=== PATIENT | male | born 1955 | race Caucasian/White ===

== ENCOUNTER 2016-08-06 17:17 | Inpatient (IN) ==
[2016-08-06] MEDS ORDERED: OCTREOTIDE 100 MCG/ML SYRINGE IV STA (17:58)
[2016-08-06] MEDS ORDERED: ONDANSETRON 4 MG/2 ML VIAL IV STA (17:58)
[2016-08-06] MEDS ORDERED: PANTOPRAZOLE INJ 80 MG in SODIUM CHLORIDE 0.9% 100 ML IV STA (17:58)
[2016-08-06] MEDS ORDERED: SODIUM CHLORIDE 0.9% 1,000 ML IV STA (18:00)
[2016-08-06] MEDS ORDERED: ONDANSETRON 4 MG/2 ML VIAL ONE (18:26)
[2016-08-06] MEDS ORDERED: PANTOPRAZOLE 40 MG VIAL IV ONE (18:26)
[2016-08-06] MEDS ORDERED: OCTREOTIDE 100 MCG/ML SYRINGE ONE (18:27)
[2016-08-06 18:32] LABS: Basophils % 0.1 % (0.0-0.8); Hematocrit 29.4 VOL% (42.0-52.0); Hemoglobin 9.6 GM/DL (14.0-18.0); Immature Granulocytes % 1.2 %; Immature Granulocytes Absolute 0.11 #; Lymphocytes # 0.8 10*3/uL (1.4-4.0); Lymphocytes % 9.1 % (21.2-54.2); Mean Corpuscular HGB Conc 32.7 GM/DL (32-36); Mean Corpuscular Hemoglobin 32 PG (27-34); Mean Platelet Volume 10.3 FL (9.6-12.0); Monocytes # 0.5 10*3/uL (0.11-0.8); Monocytes % 4.9 % (1.7-12.7); Neutrophils # 7.8 10*3/uL (1.4-7.4); Neutrophils % 84.7 % (38.7-73.9); Red Cell Distribution Width 15.4 % (9.3-17.3); White Blood Count 9.2 T/CUMM (4-12)
[2016-08-06 18:33] LABS: Platelet Count 96 T/CUMM (130-400)
[2016-08-06 18:42] LABS: INR 1.4; PT Patient Result 15.1 SECS; Partial Thromboplastin Time 28.1 SECS (0-40)
--- NOTE | 2016-08-06 18:50 | XRay Report ---
Portable chest Date: 08/06/2016 Clinical history: Shortness of breath Comparison: None Technique: Portable AP sitting chest Findings: The heart is borderline in size with prior median sternotomy. Chronic scarring with minimal relative elevation right hemidiaphragm. Minimal atelectasis/edema at the lung bases. Degenerative changes are noted. Impression: Status post median sternotomy with chronic scarring. Relative elevation of the right hemidiaphragm. Minimal atelectasis/edema at the lung bases. PROCEDURE INTERPRETED AT [facility] DEPARTMENT OF RADIOLOGY Final Report Signed by: Dr. Ember Jaramillo
[2016-08-06 19:16] LABS: Albumin 2.8 G/DL (3.4-5.0); Bilirubin,Total 3.2 MG/DL (0.2-1.0); Calcium 8.7 MG/DL (8.5-10.1); Magnesium 1.7 MG/DL (1.8-2.4); Osmolality,Calculated 296.1 MOS/KG (273-304); Potassium 3.7 MMOL/L (3.5-5.1); Total Protein 6.7 G/DL (6.4-8.3)
--- NOTE | 2016-08-06 19:31 | Hospitalist History & Physical ---
Assessment and Plan - Time spent with patient Time spent with patient: Greater than 30 minutes (1) Hematemesis Status: Acute Assessment and plan: History of esophageal varices likely source. Currently on octreotide in the ER. Admit to ICU, obtain CBCs every 4 hours. Start ceftriaxone for prophylactic antibiotics. Continue fluids and PPI. Keep n.p.o. Consult GI. Current Visit: Yes (2) Hepatic cirrhosis due to chronic hepatitis C infection Status: Acute Assessment and plan: Will consult GI for any further recommendations. Obtain serial labs. Current Visit: Yes (3) CAD (coronary artery disease) Status: Acute Assessment and plan: Hold aspirin and follow. Keep adequate hemoglobin levels. Current Visit: Yes (4) Hypothyroidism Status: Acute Assessment and plan: Holding medication. Current Visit: Yes (5) HTN (hypertension) Status: Acute Assessment and plan: We will continue to monitor. Holding medications. Current Visit: Yes History of Present Illness Chief complaint: Vomiting blood for 2 days History of present illness: Mr. Thorne is a 60 year old male with a medical history of coronary artery disease with CABG, hep C cirrhosis, alcohol abuse, esophageal varices with prior banding presents with hematemesis for 2 days. Patient states the day prior to admission he began vomiting coffee-ground emesis. He was unable to sleep due to persistent nausea and vomiting progressed until the day of admission where he developed melena and and continued vomiting dark blood. He presents from outside hospital and was transferred to [facility] for evaluation by specialist. While in the ER he vomited 200 cc of bright red blood. He currently has no complaints of chest pain or shortness of breath. Denies any fever lightheadedness. Denies any abdominal pain. He did experience upper abdominal pain yesterday. He has continued nausea. Denies any alcohol or drug use. States he started Harvoni for hep C treatment 3 weeks ago and is concerned that might be causing this. Home Medications Medication Instructions Recorded Confirmed Type Levothyroxine Tab [Synthroid Tab] 112 mcg PO DAILY@0700 01/18/15 08/06/16 History Metoprolol Tartrate Tab [Lopressor 25 mg PO BID 01/18/15 08/06/16 History Tab] Pravastatin [Pravachol] 20 mg PO DAILY 01/18/15 08/06/16 History risperiDONE TAB [RisperDAL TAB] 2 mg PO BID 01/18/15 08/06/16 History Aspirin [Ecotrin] 81 mg PO DAILY 06/15/16 08/06/16 History Folic Acid Tab 1 mg PO DAILY 06/15/16 08/06/16 History Furosemide 40 mg PO DAILY 06/15/16 08/06/16 History Trazodone HCl 50 mg PO BEDTIME PRN 06/15/16 08/06/16 History Ledipasvir/Sofosbuvir [Harvoni 1 each PO DAILY 08/06/16 08/06/16 History 90-400 mg Tablet] Allergies Allergy/AdvReac Type Severity Reaction Status Date / Time No Known Allergies Allergy Verified 01/18/15 13:37 Medical,Surgical,& Family Hx - Medical History Cardio: History of: CAD, Hypertension No history of: Cardiac Dysrhythmia, [place] Neurology: No history of: Seizures Endocrine: History of: Thyroid Disorder Genitourinary: No history of: Prostate Problems Gastrointestinal: History of: GERD, Gastrointestinal Bleed (april 2016), Hepatitis (hepatitis c), Liver Problems Musculoskeletal: History of: Musculoskeletal Problems (psorisis) Hematology: History of: Anemia No history of: Blood Transfusion Reaction Other: No history of: Anesthesia Reactions, Cancer - Surgical History Cardiac Surgeries: Sugical HX of: Cardiac Catheterization, Cardiac Surgery ( triple bypass-2013) Patient Denies: Carotid Endarterectomy HEENT Surgeries: Patient denies: Carotid Endarterectomy, Eye Surgery, Tonsilectomy & Adenoidectomy Abdominal Surgeries: Surgical HX of: Colonoscopy, EGD Patient denies: Abdominal Surgery, Appendectomy, Cholecystectomy Orthopedic Surgeries: Patient denies;: Orthopedic Surgery - Family History Family History: Denies;: Family Cancer - Social History Smoking Status: Former smoker Frequency of Alcohol Use: None Type of Drug Use: None 12 point system: reviewed and no additional remarkable complaints except as stated - Constitutional Constitutional: Present: fatigue, weakness. Absent: anorexia, chills, excessive sweating, fever(s), night sweats, weight gain, weight loss - Cardiovascular Cardiovascular: Absent: chest pain at rest, chest pain with activity, claudication, dyspnea, dyspnea on exertion, orthopnea, palpitations - Gastrointestinal Gastrointestinal: Present: abdominal pain, coffee ground emesis, hematemesis, melena, nausea, vomiting, jaundice. Absent: bloating, dyspepsia - Neurological Neurological: Absent: abnormal gait, abnormal speech, behavioral changes, confusion, convulsions, disequilibrium - Endocrine Endocrine: Absent: cold intolerance, heat intolerance Exam - Constitutional Vitals: Period Temp Pulse Resp BP Sys/Moralez Pulse Ox Last 24 Hr 98.0 F-98.0 F 94-99 16-18 115-134/69-79 91-93 General appearance: no acute distress - Head Head exam: Present: normocephalic, atraumatic - Eye Eye exam: Present: EOMI Pupils: Present: LENORE - ENT ENT exam: Present: normal exam - Neck Neck exam: Present: normal inspection - Respiratory Respiratory exam: Present: clear to auscultation bilaterally. Absent: rhonchi, wheezes - Cardiovascular Cardiovascular exam: Present: regular rate and rhythm. Absent: gallop, rubs, systolic murmur - GI/Abdominal GI/Abdominal exam: Present: normal bowel sounds, soft. Absent: distended, firm , guarding, tenderness, rebound - Extremities Exam Extremities exam: Present: normal inspection. Absent: calf tenderness, edema Results - Labs CBC & BMP: 08/06/16 18:17 08/06/16 18:17 Lab Results: I have reviewed the past 24 hour labs
[2016-08-06 20:18] LABS: Burr Cells Few; Platelet Estimate Decreased; Poikilocytosis 1+; Tear Drop Cells Few
[2016-08-06] MEDS: PANTOPRAZOLE INJ 200 MG in SODIUM CHLORIDE 0.9% 250 ML IV SCH (20:27)
[2016-08-06] MEDS: OCTREOTIDE 1,250 MCG in SODIUM CHLORIDE 0.9% 247.5 ML IV SCH (20:27)
[2016-08-06] MEDS: cefTRIAXone 1,000 MG in SODIUM CHLORIDE 0.9% 100 ML IV SCH (22:00)
[2016-08-07 00:04] LABS: Hematocrit 24.8 VOL% (42.0-52.0); Hemoglobin 8.3 GM/DL (14.0-18.0); Immature Granulocytes % 0.7 %; Immature Granulocytes Absolute 0.04 #; Lymphocytes # 0.9 10*3/uL (1.4-4.0); Mean Corpuscular HGB Conc 33.5 GM/DL (32-36); Mean Corpuscular Hemoglobin 33 PG (27-34); Mean Corpuscular Volume 97.6 FL (87-102); Mean Platelet Volume 10.1 FL (9.6-12.0); Monocytes # 0.4 10*3/uL (0.11-0.8); Monocytes % 5.8 % (1.7-12.7); Neutrophils # 4.8 10*3/uL (1.4-7.4); Neutrophils % 79.5 % (38.7-73.9); Red Blood Count 2.54 MC/CUMM (3.8-5.5); Red Cell Distribution Width 15.9 % (9.3-17.3); White Blood Count 6.1 T/CUMM (4-12)
[2016-08-07 00:14] LABS: Platelet Count 69 T/CUMM (130-400)
--- NOTE | 2016-08-07 01:14 | Emergency Department Note ---
Russell Guerrero Brittany, am scribing for, and in the presence of, Nabil Cabrales MD 18:36. Keron Guerrero William S., MD, personally performed the services described in this documentation, ascribed by Nhung Wells in my presence, and it is both accurate and complete . Arrival - Arrival Chief Complaint: GI Bleed/Rectal Stated Complaint: gi bleed ED Nursing Triage Note: Brought in by EMS-transfer from [facility] for further evaluation of vomiting coffee ground emesis-onset last night. Mode of Arrival: Stretcher Limitations: No Limitations Source: Patient, Family - History of Present Illness HPI Narrative: This is a 60 y/o male,who presents to the ED by EMS for further evaluation of coffee ground emesis which started last night. He states he started to vomit last night. He has noticed the emesis to look like coffee grounds. Pt notes nausea but no confusion or neck pain. PT has no other complaints/pain in the ED at this time. Pt has a PMHs of CAD, HTN, thyroid disorder, GERD, anemia hepatitis C, liver problems. PT has had a cardiac cath, cardiac surgery (triple bypass), EGD, and colonoscopy. Pt deneis a family medical Hx. Pt is a former smoker, ormer drinker, but denies the use of street drugs. Pt is currently taking Harvoni for the Hepatitis C. While at [facility], pt had blood work drawn which reads as follows: Glucose-169, BUN-39, Creatinine, Serum-1.5, Calcium-145 , Potassium-4.2, Chloride, serum-106, Bicarbonate-27, Anion GAP 16.1, Protein- 7.3, Albumin-2.7, Bilirubin-3.10, Bilirubin Direct-0.90, Alkaline Phosphatase-89 , ALT-30, AST-40, Globulin-4.6, A/G Ration-0.6, WBC-13.9, RBC-3.22, HGB-10.5, HCT-32.3, MCV-100.3, MCH-32.6, MCHC-32.5RDW-15.6, Platelet-142, MPV-10.4, Neutrophils-79.8, Lymphocytes-12.5 ,Monocytes-7.5, Eosinophils-0.1, and Basophils-0.1 Onset (ago): day(s) (Started last ngiht) Consistency: constant Severity: moderate Allergies/Adverse Reactions: Allergies Allergy/AdvReac Type Severity Reaction Status Date / Time No Known Allergies Allergy Verified 01/18/15 13:37 Home Medications: Home Medications Medication Instructions Recorded Confirmed Type Levothyroxine Tab [Synthroid Tab] 112 mcg PO DAILY@0700 01/18/15 08/06/16 History Metoprolol Tartrate Tab [Lopressor 25 mg PO BID 01/18/15 08/06/16 History Tab] Pravastatin [Pravachol] 20 mg PO DAILY 01/18/15 08/06/16 History risperiDONE TAB [RisperDAL TAB] 2 mg PO BID 01/18/15 08/06/16 History Aspirin [Ecotrin] 81 mg PO DAILY 06/15/16 08/06/16 History Folic Acid Tab 1 mg PO DAILY 06/15/16 08/06/16 History Furosemide 40 mg PO DAILY 06/15/16 08/06/16 History Trazodone HCl 50 mg PO BEDTIME PRN 06/15/16 08/06/16 History Ledipasvir/Sofosbuvir [Harvoni 1 each PO DAILY 08/06/16 08/06/16 History 90-400 mg Tablet] Review of System - Review of System 12 point system: reviewed and no additional remarkable complaints except as stated - Review of System Gastrointestinal: Present: nausea, hematemesis Musculoskeletal: Absent: neck pain Neurological: Absent: confusion Medical,Surgical,& Family Hx - Medical History Cardio: History of: CAD, Hypertension No history of: Cardiac Dysrhythmia, [place] Neurology: No history of: Seizures Endocrine: History of: Thyroid Disorder Genitourinary: No history of: Prostate Problems Gastrointestinal: History of: GERD, Gastrointestinal Bleed (april 2016), Hepatitis (hepatitis c), Liver Problems Musculoskeletal: History of: Musculoskeletal Problems (psorisis) Hematology: History of: Anemia No history of: Blood Transfusion Reaction Other: No history of: Anesthesia Reactions, Cancer - Surgical History Cardiac Surgeries: Sugical HX of: Cardiac Catheterization, Cardiac Surgery ( triple bypass-2013) Patient Denies: Carotid Endarterectomy HEENT Surgeries: Patient denies: Carotid Endarterectomy, Eye Surgery, Tonsilectomy & Adenoidectomy Abdominal Surgeries: Surgical HX of: Colonoscopy, EGD Patient denies: Abdominal Surgery, Appendectomy, Cholecystectomy Orthopedic Surgeries: Patient denies;: Orthopedic Surgery - Family History Family History: Denies;: Family Cancer - Social History Smoking Status: Former smoker Frequency of Alcohol Use: None Type of Drug Use: None Exam Vital Signs: Vital Signs Temperature 98.0 F 08/06/16 17:23 Pulse Rate 93 H 08/06/16 20:06 Respiratory Rate 20 08/06/16 20:06 Blood Pressure 117/71 08/06/16 20:06 O2 Sat by Pulse Oximetry 100 08/06/16 20:06 - General General appearance: alert, in no apparent distress - Head Head exam: Present: atraumatic, normocephalic, normal inspection - Eye Eye exam: Present: normal appearance, PERRL, EOMI. Absent: nystagmus, miosis, mydriasis - ENT ENT exam: Present: normal exam, normal oropharynx, mucous membranes moist - Neck Neck exam: Present: normal inspection, full ROM, trachea midline. Absent: tenderness, meningismus, lymphadenopathy, thyromegaly - Chest Chest inspection: Present: normal inspection, symmetric chest wall rise. Absent : tenderness, rash, abscess - Respiratory Respiratory exam: Present: normal lung sounds bilaterally. Absent: rales, respiratory distress, rhonchi, stridor, wheezes - Cardiovascular Cardiovascular exam: Present: regular rate, normal rhythm, normal heart sounds. Absent: murmur, rubs, gallop, clicks - Abdominal Exam Abdominal exam: Present: soft, normal bowel sounds. Absent: distention, tenderness, guarding, rebound, rigidity - Rectal Exam Rectal exam: Present: deferred - Extremities Exam Extremities exam: Present: normal capillary refill, other (Post surgical scars to the bilatreal lower externities). Absent: pedal edema, joint swelling, calf tenderness - Back Exam Back exam: Present: normal inspection, full ROM. Absent: tenderness, muscle spasm, rashes - Neurological Exam Neurological exam: Present: alert, oriented X3, CN II-XII intact. Absent: motor sensory deficit - Psychiatric Psychiatric exam: Present: normal affect, normal mood. Absent: depressed, agitated, anxious, manic - Skin Skin exam: Present: warm, dry, intact, normal color. Absent: rash, cyanosis, diaphoresis, erythema, pallor, mottled - Other Other exam information: Coffee Ground Emesis on hospital gown. Course - Reevaluation(s) Reevaluation #1: Patient is seen several times during the course the patient's evaluation in the emergency department. Patient arrives from outside facility for nausea and vomiting of coffee-ground emesis consistent with GI bleed. Patient with known history of varices. Patient with recurrent vomiting and ER showing active bleeding. Patient most likely with acute bleeding of gastric esophageal varices. Patient arrives without medications or fluids. Patient is immediately given a Protonix bolus followed by Protonix drip at 8 mg/h as well as octreotide bolus followed by drip to help with treatment of the varices. Additional fluids are given for fluid resuscitation and the patient is typed and crossed for immediate transfusion if necessary. After the patient has been properly resuscitated the patient is admitted to the medical service. Results - Labs CBC & BMP: 08/06/16 23:45 08/06/16 18:17 - Diagnostic Findings Procedure: Chest x-ray: report reviewed by me (Status post median sternotomy with chronic scarring. Relative elevation of the right hemidiaphragm. Minimla atelectasis/edema at the lung base. 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
[2016-08-07 05:25] LABS: Basophils % 0.2 % (0.0-0.8); Eosinophils % 0.2 % (0.00-10.9); Immature Granulocytes % 0.8 %; Immature Granulocytes Absolute 0.05 #; Lymphocytes # 1.3 10*3/uL (1.4-4.0); Lymphocytes % 20.2 % (21.2-54.2); Mean Corpuscular HGB Conc 32.5 GM/DL (32-36); Mean Corpuscular Hemoglobin 32 PG (27-34); Mean Corpuscular Volume 99.2 FL (87-102); Mean Platelet Volume 11.2 FL (9.6-12.0); Monocytes # 0.5 10*3/uL (0.11-0.8); Monocytes % 8.3 % (1.7-12.7); Neutrophils # 4.4 10*3/uL (1.4-7.4); Neutrophils % 70.3 % (38.7-73.9); Platelet Count 72 T/CUMM (130-400); Red Blood Count 2.42 MC/CUMM (3.8-5.5); Red Cell Distribution Width 15.5 % (9.3-17.3); White Blood Count 6.2 T/CUMM (4-12)
[2016-08-07 05:33] LABS: Hemoglobin 7.8 GM/DL (14.0-18.0)
[2016-08-07 05:53] LABS: Albumin 2.3 G/DL (3.4-5.0); Bilirubin,Total 1.9 MG/DL (0.2-1.0); Osmolality,Calculated 297.7 MOS/KG (273-304); Potassium 3.7 MMOL/L (3.5-5.1); Total Protein 5.6 G/DL (6.4-8.3)
[2016-08-07 05:57] LABS: Macrocytosis Slight; Platelet Estimate Decreased
--- NOTE | 2016-08-07 07:24 | EKG Report ---
Stationary ECG Study [facility] Test Date: 08/06/2016 10:20:28 PM Pat Name: SUZANNE BENSON Department: Room: 118 Gender: M [employer] Guide: CARMINE HERNANDEZ : 1955 Requested by: Nabil Lozano Order Number: [id number] Юлия MD: SHAYY NOBLE Intervals [place] Rate: 96 P: 11 VT: 144 QRS: -28 QRSD: 112 T: 84 QT: 391 QTc: 445 Interpretive Statements SINUS RHYTHM INFERIOR MYOCARDIAL INFARCTION, OF INDETERMINATE AGE WITH POSTERIOR EXTENSION Electronically Signed On 08-09-16 12:37:37 CDT by SHAYY NOBLE [email or web address]
[2016-08-07 08:06] LABS: Basophils % 0.2 % (0.0-0.8); Eosinophils % 0.5 % (0.00-10.9); Hematocrit 23.3 VOL% (42.0-52.0); Hemoglobin 7.8 GM/DL (14.0-18.0); Immature Granulocytes % 0.5 %; Immature Granulocytes Absolute 0.03 #; Lymphocytes # 1.5 10*3/uL (1.4-4.0); Lymphocytes % 23.2 % (21.2-54.2); Mean Corpuscular HGB Conc 33.5 GM/DL (32-36); Mean Corpuscular Hemoglobin 33 PG (27-34); Mean Corpuscular Volume 97.5 FL (87-102); Mean Platelet Volume 10.5 FL (9.6-12.0); Monocytes # 0.5 10*3/uL (0.11-0.8); Monocytes % 7.3 % (1.7-12.7); Neutrophils # 4.5 10*3/uL (1.4-7.4); Neutrophils % 68.3 % (38.7-73.9); Platelet Count 78 T/CUMM (130-400); Red Blood Count 2.39 MC/CUMM (3.8-5.5); Red Cell Distribution Width 15.7 % (9.3-17.3); White Blood Count 6.6 T/CUMM (4-12)
[2016-08-07 08:25] LABS: Macrocytosis Slight; Platelet Estimate Decreased
[2016-08-07] MEDS: SODIUM CHLORIDE 0.9% 1,000 ML IV SCH ×2 (08:52→17:12)
[2016-08-07] MEDS ORDERED: SODIUM CHLORIDE 0.9% 250 ML IV PRN (09:27)
--- NOTE | 2016-08-07 09:43 | Hospitalist Progress Note ---
Assessment and Plan - Time spent with patient Time spent with patient: Greater than 30 minutes (1) Hematemesis Status: Acute Assessment and plan: History of esophageal varices likely source. Currently on octreotide in the ER. Admit to ICU, obtain CBCs every 4 hours. Start ceftriaxone for prophylactic antibiotics. Continue fluids and PPI. Keep n.p.o. Consult GI. Current Visit: Yes (2) Hepatic cirrhosis due to chronic hepatitis C infection Status: Acute Assessment and plan: Will consult GI for any further recommendations. Obtain serial labs. Current Visit: Yes (3) CAD (coronary artery disease) Status: Acute Assessment and plan: Hold aspirin and follow. Keep adequate hemoglobin levels. Current Visit: Yes (4) Hypothyroidism Status: Acute Assessment and plan: Holding medication. Current Visit: Yes (5) HTN (hypertension) Status: Acute Assessment and plan: We will continue to monitor. Holding medications. Current Visit: Yes Hospitalist: Subjective Interval history: Patient's no better this morning. No nausea vomiting hematemesis. No abdominal pain. Vitals been stable. Exam - Constitutional Vitals: Period Temp Pulse Resp BP Sys/Moralez Pulse Ox Last 24 Hr 98.6 F-98.8 F 86-120 12-27 89-120/58-79 92-100 General appearance: no acute distress - Head Head exam: Present: normocephalic, atraumatic - Eye Eye exam: Present: EOMI Pupils: Present: LENORE - ENT ENT exam: Present: normal exam - Neck Neck exam: Present: normal inspection - Respiratory Respiratory exam: Present: clear to auscultation bilaterally. Absent: rhonchi, wheezes - Cardiovascular Cardiovascular exam: Present: regular rate and rhythm. Absent: gallop, rubs, systolic murmur - GI/Abdominal GI/Abdominal exam: Present: normal bowel sounds, soft. Absent: distended, firm , guarding, tenderness, rebound - Extremities Exam Extremities exam: Present: normal inspection. Absent: calf tenderness, edema Results - Labs CBC & BMP: 08/07/16 07:50 08/07/16 04:37 Lab Results: I have reviewed the past 24 hour labs
[2016-08-07 12:41] LABS: Basophils % 0.2 % (0.0-0.8); Eosinophils % 0.6 % (0.00-10.9); Hemoglobin 7.8 GM/DL (14.0-18.0); Immature Granulocytes Absolute 0.06 #; Lymphocytes # 1.3 10*3/uL (1.4-4.0); Lymphocytes % 20.7 % (21.2-54.2); Mean Corpuscular HGB Conc 32.5 GM/DL (32-36); Mean Corpuscular Hemoglobin 33 PG (27-34); Mean Corpuscular Volume 100.8 FL (87-102); Mean Platelet Volume 10.3 FL (9.6-12.0); Monocytes # 0.4 10*3/uL (0.11-0.8); Monocytes % 7.1 % (1.7-12.7); Neutrophils # 4.4 10*3/uL (1.4-7.4); Neutrophils % 70.4 % (38.7-73.9); Platelet Count 77 T/CUMM (130-400); Red Blood Count 2.38 MC/CUMM (3.8-5.5); Red Cell Distribution Width 15.9 % (9.3-17.3); White Blood Count 6.2 T/CUMM (4-12)
--- NOTE | 2016-08-07 13:08 | Gastrointestinal Consult Note ---
Assessment and Plan (1) Upper gastrointestinal hemorrhage Status: Acute Assessment and plan: 08/07-Sudden onset of coffee ground emesis with epigastric pain and melena. Hgb down from admission at 7.8. Hx of esophgaeal varices with banding in May of this year. Hemodynamically stable at present with no further bleeding. Continue to monitor serial HH. Plan for tentative EGD tomorrow to further evaluate. Plan and addendum to follow by Dr Calero. Current Visit: Yes History of Present Illness Chief complaint: Coffee ground emesis History of present illness: Mr. Thorne is a 60 year old male who presented to the hospital with onset of coffee ground emesis. 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 Pt has recently started Harvoni treatment for his hepatitis with Dr Calero last Sunday. He has tolerated the medication well so far. He states that the last couple of weeks he has began to notice his stools turning dark and tarry. He has had this in the past most recently May of this year. He states he had onset two days ago of upper epigastric pain and nausea with vomiting several times of coffee ground emesis. He denies any fever or chills. Denies any hematochezia. States that the pain feels very similar to when he had this in the past. Most recent EGD was in May of this year in which he was found to have grade I-II varices with banding with bleeding stigmata. He was to return for repeat EGD on 07/17 but states he missed this appointment however has this scheduled for outpatient tomorrow prior to this admission (unable to locate this on the schedule). He states he has not drank alcohol in 8 months. He has reported some weight loss but states he is trying to eat less and this is a warranted loss. He is hemodynamically stable at this time. Hemoglobin on admission was 9.6 and has trended down now at 7.8. He is to receive 2 units of PRBC today. Home Medications Medication Instructions Recorded Confirmed Type Levothyroxine Tab [Synthroid Tab] 112 mcg PO DAILY@0700 01/18/15 08/07/16 History Metoprolol Tartrate Tab [Lopressor 25 mg PO BID 01/18/15 08/07/16 History Tab] Pravastatin [Pravachol] 20 mg PO DAILY 01/18/15 08/07/16 History risperiDONE TAB [RisperDAL TAB] 2 mg PO BID 01/18/15 08/07/16 History Aspirin [Ecotrin] 81 mg PO DAILY 06/15/16 08/07/16 History Folic Acid Tab 1 mg PO DAILY 06/15/16 08/07/16 History Furosemide 40 mg PO DAILY 06/15/16 08/07/16 History Trazodone HCl 50 mg PO BEDTIME PRN 06/15/16 08/07/16 History Ledipasvir/Sofosbuvir [Harvoni 1 each PO DAILY 08/06/16 08/06/16 History 90-400 mg Tablet] Calcium Carbonate/Vitamin D3 1 each PO DAILY 08/07/16 08/07/16 History [Calcium 600 + Vit D Tablet] Famotidine Tab [Pepcid Tab] 20 mg PO BEDTIME 08/07/16 08/07/16 History Multivitamin (Centrum) [Centrum 1 tablet PO DAILY 08/07/16 08/07/16 History Tab] Allergies Allergy/AdvReac Type Severity Reaction Status Date / Time No Known Allergies Allergy Verified 01/18/15 13:37 Medical,Surgical,& Family Hx - Medical History Cardio: History of: CAD, Hypertension No history of: Cardiac Dysrhythmia, [place] Neurology: No history of: Seizures, TIA Endocrine: History of: Thyroid Disorder Genitourinary: No history of: Prostate Problems Gastrointestinal: History of: GERD, Gastrointestinal Bleed (april 2016), Hepatitis (hepatitis c), Liver Problems Musculoskeletal: History of: Musculoskeletal Problems (psorisis) Hematology: History of: Anemia No history of: Blood Transfusion Reaction Other: No history of: Anesthesia Reactions, Cancer - Surgical History Cardiac Surgeries: Sugical HX of: Cardiac Catheterization, Cardiac Surgery ( triple bypass-2013) Patient Denies: Carotid Endarterectomy HEENT Surgeries: Patient denies: Carotid Endarterectomy, Eye Surgery, Tonsilectomy & Adenoidectomy Abdominal Surgeries: Surgical HX of: Colonoscopy, EGD Patient denies: Abdominal Surgery, Appendectomy, Cholecystectomy Orthopedic Surgeries: Patient denies;: Orthopedic Surgery - Family History Family History: Denies;: Family Cancer - Social History Smoking Status: Former smoker Frequency of Alcohol Use: None Type of Drug Use: None - Constitutional Constitutional: Present: as per HPI - EENT Eyes: Present: as per HPI Ears: Present: as per HPI Nose, mouth and throat: Present: as per HPI - Cardiovascular Cardiovascular: Present: as per HPI - Respiratory Respiratory: Present: as per HPI - Gastrointestinal Gastrointestinal: Present: as per HPI, abdominal pain, coffee ground emesis, melena, nausea, vomiting - Genitourinary Genitourinary: Present: as per HPI - Musculoskeletal Musculoskeletal: Present: as per HPI - Neurological Neurological: Present: as per HPI - Psychiatric Psychiatric: Present: as per HPI - Endocrine Endocrine: Present: as per HPI - Hematologic/Lymphatic Hematologic/Lymphatic: Present: as per HPI Exam - Constitutional Vitals: Period Temp Pulse Resp BP Sys/Moralez Pulse Ox Last 24 Hr 98.6 F-99.9 F 86-120 12-27 89-123/58-79 90-100 General appearance: normal weight, no acute distress - Head Head exam: Present: normal inspection, normocephalic - Eye Eye exam: Present: other (lids and conjunctiva unremarkable). Absent: scleral icterus - ENT ENT exam: Present: normal exam, normal oropharynx - Neck Neck exam: Present: normal inspection - Respiratory Respiratory exam: Present: clear to auscultation bilaterally. Absent: rales, rhonchi, wheezes - Cardiovascular Cardiovascular exam: Present: regular rate and rhythm. Absent: diastolic murmur , JVD, systolic murmur - GI/Abdominal GI/Abdominal exam: Present: normal bowel sounds, soft. Absent: ascites, distended, mass, organomegaly, tenderness - Extremities Exam Extremities exam: Present: normal inspection, full ROM - Back Exam Back exam: Present: normal inspection - Neurological Exam Neurological exam: Present: alert, oriented X3 - Psychiatric Psychiatric exam: Present: normal affect, normal mood - Skin Skin exam: Present: normal color, warm, dry Results - Labs CBC & BMP: 08/07/16 12:36 08/07/16 04:37 Lab Results: I have reviewed the past 24 hour labs
[2016-08-07] MEDS ORDERED: PROPOFOL 200 MG/20 ML VIAL IV ONE (14:43)
[2016-08-07] MEDS ORDERED: LIDOCAINE 1% 5 ML VIAL ONE (14:43)
[2016-08-07] MEDS: SOFOSBUVIR PO SCH (16:00)
[2016-08-07] MEDS: LEDIPASVIR PO SCH (16:00)
[2016-08-07 19:02] LABS: Hemoglobin 7.9 GM/DL (14.0-18.0)
[2016-08-07] MEDS: OCTREOTIDE 1,250 MCG in SODIUM CHLORIDE 0.9% 247.5 ML IV SCH (20:02)
[2016-08-07] MEDS: PANTOPRAZOLE INJ 200 MG in SODIUM CHLORIDE 0.9% 250 ML IV SCH (20:03)
[2016-08-07] MEDS: cefTRIAXone 1,000 MG in SODIUM CHLORIDE 0.9% 100 ML IV SCH (20:04)
[2016-08-07 22:30] LABS: Hematocrit 21.4 VOL% (42.0-52.0); Hemoglobin 7.1 GM/DL (14.0-18.0)
[2016-08-08] MEDS: SODIUM CHLORIDE 0.9% 1,000 ML IV SCH ×2 (05:10→21:27)
[2016-08-08 06:09] LABS: Basophils % 0.7 % (0.0-0.8); Eosinophils # 0.1 10*3/uL (0.0-0.87); Hematocrit 22.7 VOL% (42.0-52.0); Hemoglobin 7.5 GM/DL (14.0-18.0); Immature Granulocytes % 0.7 %; Immature Granulocytes Absolute 0.02 #; Lymphocytes # 0.8 10*3/uL (1.4-4.0); Lymphocytes % 27.5 % (21.2-54.2); Mean Corpuscular Hemoglobin 33 PG (27-34); Mean Corpuscular Volume 98.3 FL (87-102); Mean Platelet Volume 10.7 FL (9.6-12.0); Monocytes # 0.3 10*3/uL (0.11-0.8); Monocytes % 8.3 % (1.7-12.7); Neutrophils # 1.8 10*3/uL (1.4-7.4); Neutrophils % 60.8 % (38.7-73.9); Platelet Count 60 T/CUMM (130-400); Red Blood Count 2.31 MC/CUMM (3.8-5.5); Red Cell Distribution Width 18.5 % (9.3-17.3)
[2016-08-08 06:18] LABS: Hematocrit 23.4 VOL% (42.0-52.0); Hemoglobin 7.5 GM/DL (14.0-18.0)
[2016-08-08 06:34] LABS: Eosinophils 2 % (0-10); Hypochromasia 1+; Lymphocytes 22 % (20-55); Macrocytosis 1+; Platelet Estimate Decreased; Promyelocytes 1 %; Segmented Neutrophils 70 % (50-85); Total Cells Counted 100
[2016-08-08 06:37] LABS: Calcium 7.2 MG/DL (8.5-10.1); Osmolality,Calculated 294.6 MOS/KG (273-304); Potassium 3.6 MMOL/L (3.5-5.1)
--- NOTE | 2016-08-08 09:12 | Physician Query Form ---
CLICK EDIT DOCUMENT TO SELECT QUERY ANSWER --> OK --> SIGN Brittney Rosa RN, CCDS Certified Clinical [employer] W) [phone] (f) [phone] [email or web address] PROVIDERS: Make your selection(s) from the choices in EACH section by typing an "x" and enter comments in the comment section. Please use your independent medical judgment in providing your response. This request does not imply that any particular answer is desired or expected. CLINICAL INDICATORS: (Providers should not edit this section) "Hemoglobin on admission was 9.6 and has trended down now at 7.8. He is to receive 2 units of PRBC today." Based on the above, could you clarify which of the following conditions you are evaluating, treating, and/or monitoring? ( x) Blood loss anemia (x) acute ( ) chronic ( ) acute on chronic ( ) Acute blood loss anemia on baseline chronic anemia ( ) Acute blood loss anemia as a complication of a procedure ( ) Iron deficiency anemia not associated with blood loss ( ) Dilutional anemia due to IV fluids ( ) Anemia due to chemotherapy ( ) Anemia due to neoplastic disease ( ) Anemia due to chronic kidney disease ( ) Pernicious anemia ( ) Aplastic anemia ( ) Hemolytic anemia ( ) immune ( ) non-immune - please specify cause: ( ) Anemia due to other condition, please specify: ( ) Clinically unable to determine COMMENTS: Use of terms such as suspected, likely, or probable (associated with a specific diagnosis that is being evaluated, monitored, or treated as if it exists) are acceptable and can be restated in the discharge summary if not ruled out. MTDD
[2016-08-08 09:35] LABS: Hematocrit 25.5 VOL% (42.0-52.0); Hemoglobin 8.2 GM/DL (14.0-18.0)
--- NOTE | 2016-08-08 12:42 | Hospitalist Progress Note ---
Assessment and Plan - Time spent with patient Time spent with patient: Greater than 30 minutes (1) Hematemesis Status: Acute Assessment and plan: History of esophageal varices likely source. Currently on octreotide. ontinue ceftriaxone for prophylactic antibiotics. Continue fluids and PPI. Keep n.p.o. Scope today. Current Visit: Yes (2) Hepatic cirrhosis due to chronic hepatitis C infection Status: Acute Assessment and plan: We will have to start the patient on lactulose post EGD. Current Visit: Yes (3) CAD (coronary artery disease) Status: Acute Assessment and plan: Hold aspirin and follow. Keep adequate hemoglobin levels. Current Visit: Yes (4) Hypothyroidism Status: Acute Assessment and plan: Holding medication. Current Visit: Yes (5) HTN (hypertension) Status: Acute Assessment and plan: We will continue to monitor. Holding medications. Current Visit: Yes Hospitalist: Subjective Interval history: No complaints this morning. No overnight events. No recurrence of bleeding. No nausea or vomiting. Exam - Constitutional Vitals: Period Temp Pulse Resp BP Sys/Moralez Pulse Ox Last 24 Hr 97.8 F-100 F 76-108 14-23 105-133/54-77 90-96 General appearance: no acute distress - Head Head exam: Present: normocephalic, atraumatic - Eye Eye exam: Present: EOMI, scleral icterus Pupils: Present: LENORE - ENT ENT exam: Present: normal exam - Neck Neck exam: Present: normal inspection - Respiratory Respiratory exam: Present: clear to auscultation bilaterally. Absent: rhonchi, wheezes - Cardiovascular Cardiovascular exam: Present: regular rate and rhythm. Absent: gallop, rubs, systolic murmur - GI/Abdominal GI/Abdominal exam: Present: normal bowel sounds, soft. Absent: distended, firm , guarding, tenderness, rebound - Extremities Exam Extremities exam: Present: normal inspection. Absent: calf tenderness, edema Results - Labs CBC & BMP: 08/08/16 09:25 08/08/16 05:49 Lab Results: I have reviewed the past 24 hour labs
[2016-08-08 13:32] LABS: Hematocrit 25.8 VOL% (42.0-52.0)
--- NOTE | 2016-08-08 14:36 | History and Physical Update ---
History and Physical Update - History and Physical H&P was reviewed, the patient examined and there: are no changes in the patients condition since last H&P was completed. - Physical Exam Mental Status: alert and oriented Heart: regular rate and rhythm Lung: clear to auscultation Abdomen: within normal limits Vitals: within normal limits
--- NOTE | 2016-08-08 14:39 | Operative Note ---
Date of procedure: 08/08/16 Pre-op diagnosis: Upper GI bleeding Post-op diagnosis: other (Esophageal varices with bleeding stigmata) Procedure: Procedure: Esophagogastroduodenoscopy with banding of esophageal varices Brief clinical abstract: Patient is a 60-year-old male with cirrhosis and previously noted esophageal varices which were banded around 6 weeks ago. He is admitted with hematemesis. He has been stable for over 24 hours. Indication for procedure: Hematemesis Endoscopic findings:[After informed consent was obtained, the patient was placed in the left lateral decubitus position. The gastroscope was inserted in the upper esophagus under direct vision with no resistance encountered. Esophageal mucosa was notable for small grade I-II esophageal varices which extended to the squamocolumnar junction. Just at this level and below approximately 1 cm there were varices extending across the GE junction with a couple of these having red spots consistent bleeding stigmata. The endoscope was advanced in the stomach which was carefully examined including retroflexed view of the cardia and fundus. Patient has changes of portal gastropathy with prominence of the area gastricae pattern and scattered subepithelial hemorrhoids. Mild friability was noted. No varices were seen in the stomach. The pyloric channel, duodenal bulb, second and third portion of the duodenum were normal. The endoscope was withdrawn. Cook 6 shooter banding device was applied to the endoscope. He was readvanced to the GE junction. 4 bands were deployed over varices in the distal 5 cm of the esophagus and just below the GE junction. There appeared to be good decompression of varices above this afterwards. He appeared to tolerate the procedure well. Impression: Esophageal and junctional varices with bleeding stigmata-status post band ligation Recommendations: Continue observation with serial hemoglobins. Would probably transfuse if hemoglobin is less than 7. Plan repeat EGD to reevaluate this in 6 weeks. F F F Anesthesia: MAC Surgeon / Physician: Nabil Calero Estimated blood loss: minimal Specimens: none sent Condition: stable Disposition: post procedure unit Results - Labs CBC & BMP: 08/08/16 13:18 08/08/16 05:49 Discharge Plan - Discharge Medications No Action Levothyroxine Tab [Synthroid Tab] 112 mcg PO DAILY@0700 risperiDONE TAB [RisperDAL TAB] 2 mg PO BID Pravastatin [Pravachol] 20 mg PO DAILY Metoprolol Tartrate Tab [Lopressor Tab] 25 mg PO BID Trazodone HCl 50 mg PO BEDTIME PRN PRN Reason: Insomnia Ledipasvir/Sofosbuvir [Harvoni 90-400 mg Tablet] 1 each PO DAILY Multivitamin (Centrum) [Centrum Tab] 1 tablet PO DAILY Furosemide 40 mg PO DAILY Folic Acid Tab 1 mg PO DAILY Aspirin [Ecotrin] 81 mg PO DAILY Famotidine Tab [Pepcid Tab] 20 mg PO BEDTIME Calcium Carbonate/Vitamin D3 [Calcium 600 + Vit D Tablet] 1 each PO DAILY - Follow Up or Referral - Forms/Instructions
--- NOTE | 2016-08-08 14:47 | Anesthesia ---
Anesthesia Post OP - Post Ansesthetic Evaluation Patient seen in post op: Yes Resp: within normal limits CV: within normal limits Mental: within normal limits Temp: within normal limits [id number]: within normal limits Nausea and Vomiting: within normal limits Pain: within normal limits
[2016-08-08] MEDS: SOFOSBUVIR PO SCH (15:30)
[2016-08-08] MEDS: LEDIPASVIR PO SCH (15:30)
[2016-08-08] MEDS: cefTRIAXone 1,000 MG in SODIUM CHLORIDE 0.9% 100 ML IV SCH (21:22)
[2016-08-08] MEDS: OCTREOTIDE 1,250 MCG in SODIUM CHLORIDE 0.9% 247.5 ML IV SCH (21:24)
[2016-08-08] MEDS: PANTOPRAZOLE INJ 200 MG in SODIUM CHLORIDE 0.9% 250 ML IV SCH (21:26)
[2016-08-09] MEDS: SODIUM CHLORIDE 0.9% 1,000 ML IV SCH ×5 (05:24→17:59)
[2016-08-09 06:46] LABS: Hematocrit 23.5 VOL% (42.0-52.0); Hemoglobin 7.5 GM/DL (14.0-18.0)
--- NOTE | 2016-08-09 09:42 | Gastrointestinal Progress Note ---
Assessment and Plan (1) Upper gastrointestinal hemorrhage Status: Acute Assessment and plan: 08/09-no overt bleeding. Status post EGD with variceal banding. Hemoglobin stable at 7.5. Continue to monitor and transfuse if hemoglobin less than 7. Plan an addendum to followed by Dr. Calero. 08/07-Sudden onset of coffee ground emesis with epigastric pain and melena. Hgb down from admission at 7.8. Hx of esophgaeal varices with banding in May of this year. Hemodynamically stable at present with no further bleeding. Continue to monitor serial HH. Plan for tentative EGD tomorrow to further evaluate. Plan and addendum to follow by Dr Calero. Current Visit: Yes Gastroenterology - PN: Subj Interval history: CC: Upper GI bleed Patient is seen awake and alert sitting up in bed. States he had a restful night. He is status post EGD on yesterday with band ligation of his esophageal varices. His hemoglobin is holding stable at 7.5 today. He has had no reports of overt bleeding and states his bowel movements have been normal. Denies any abdominal pain however does have some mild esophageal soreness post banding procedure. He is tolerating full liquids at this time. Abdomen soft, nontender. He will have a repeat EGD in 6 weeks to further evaluate the findings on yesterday. ROS: Denies shortness of breath or chest pain Exam (Progress Note) - Constitutional Vitals: Period Temp Pulse Resp BP Sys/Moralez Pulse Ox Last 24 Hr 97.8 F-99.2 F 68-87 12-23 121-153/59-078 91-99 General appearance: normal weight, no acute distress - Head Head exam: Present: normal inspection, normocephalic - Eye Eye exam: Present: other (Lids and conjunctive are unremarkable). Absent: scleral icterus - ENT ENT exam: Present: normal exam, normal oropharynx - Neck Neck exam: Present: normal inspection - Respiratory Respiratory exam: Present: clear to auscultation bilaterally. Absent: rales, rhonchi, wheezes - GI/Abdominal GI/Abdominal exam: Present: normal bowel sounds, soft. Absent: ascites, distended, mass, organomegaly, tenderness - Extremities Exam Extremities exam: Present: normal inspection, full ROM - Back Exam Back exam: Present: normal inspection - Neurological Exam Neurological exam: Present: alert, oriented X3 - Psychiatric Psychiatric exam: Present: normal affect, normal mood - Skin Skin exam: Present: normal color, warm, dry Results - Labs CBC & BMP: 08/09/16 06:06 08/08/16 05:49 Lab Results: I have reviewed the past 24 hour labs
[2016-08-09] MEDS ORDERED: LACTULOSE 20 GM/30 ML UDCUP PO SCH ×2 (10:00→14:00)
--- NOTE | 2016-08-09 11:00 | Hospitalist Progress Note ---
Assessment and Plan - Time spent with patient Time spent with patient: Greater than 30 minutes (1) Hematemesis Status: Acute Assessment and plan: Status post banding Current Visit: Yes (2) Hepatic cirrhosis due to chronic hepatitis C infection Status: Acute Assessment and plan: Continue lactulose. Current Visit: Yes (3) CAD (coronary artery disease) Status: Acute Assessment and plan: Hold aspirin and follow. Keep adequate hemoglobin levels. Current Visit: Yes (4) Hypothyroidism Status: Acute Assessment and plan: Continue meds. Current Visit: Yes (5) HTN (hypertension) Status: Acute Assessment and plan: We will continue to monitor. Holding medications. Current Visit: Yes Hospitalist: Subjective Interval history: Status post EGD with banding yesterday. No complaints Exam - Constitutional Vitals: Period Temp Pulse Resp BP Sys/Moralez Pulse Ox Last 24 Hr 97.8 F-99.5 F 62-87 12-23 111-153/57-078 91-99 General appearance: no acute distress - Head Head exam: Present: normocephalic, atraumatic - Eye Eye exam: Present: EOMI, scleral icterus Pupils: Present: LENORE - ENT ENT exam: Present: normal exam - Neck Neck exam: Present: normal inspection - Respiratory Respiratory exam: Present: clear to auscultation bilaterally. Absent: rhonchi, wheezes - Cardiovascular Cardiovascular exam: Present: regular rate and rhythm. Absent: gallop, rubs, systolic murmur - GI/Abdominal GI/Abdominal exam: Present: normal bowel sounds, ascites, distended, soft. Absent: firm, guarding, tenderness, rebound - Extremities Exam Extremities exam: Present: normal inspection. Absent: calf tenderness, edema Results - Labs CBC & BMP: 08/09/16 06:06 08/08/16 05:49 Lab Results: I have reviewed the past 24 hour labs
[2016-08-09] MEDS ORDERED: traZODone 50 MG TABLET PO PRN (11:01)
[2016-08-09] MEDS: LEDIPASVIR PO SCH (14:21)
[2016-08-09] MEDS: SOFOSBUVIR PO SCH (14:21)
[2016-08-09] MEDS: LACTULOSE 20 GM/30 ML UDCUP PO SCH (18:02)
[2016-08-09] MEDS: cefTRIAXone 1,000 MG in SODIUM CHLORIDE 0.9% 100 ML IV SCH (20:47)
[2016-08-09] MEDS: PANTOPRAZOLE 40 MG TABLET PO SCH (20:48)
[2016-08-09] MEDS: risperiDONE 1 MG TABLET PO SCH (20:49)
[2016-08-09] MEDS: METOPROLOL TARTRATE 25 MG TABLET PO SCH (20:49)
[2016-08-10] MEDS: LACTULOSE 20 GM/30 ML UDCUP PO SCH ×2 (02:08→09:48)
[2016-08-10] MEDS ORDERED: LEVOTHYROXINE 112 MCG TABLET PO SCH (07:00)
[2016-08-10] MEDS: SODIUM CHLORIDE 0.9% 1,000 ML IV SCH ×2 (07:49→10:19)
[2016-08-10] MEDS: risperiDONE 1 MG TABLET PO SCH (08:38)
[2016-08-10] MEDS: PANTOPRAZOLE 40 MG TABLET PO SCH (08:39)
[2016-08-10] MEDS: METOPROLOL TARTRATE 25 MG TABLET PO SCH (08:39)
[2016-08-10] MEDS ORDERED: FUROSEMIDE 40 MG TABLET PO SCH (09:00)
[2016-08-10] MEDS ORDERED: SPIRONOLACTONE 50 MG TABLET PO SCH (09:00)
[2016-08-10] MEDS ORDERED: PRAVASTATIN 20 MG TABLET PO SCH (09:00)
[2016-08-10] MEDS ORDERED: FERROUS SULFATE 325 MG TABLET PO SCH (09:00)
[2016-08-10] MEDS ORDERED: PANTOPRAZOLE 40 MG VIAL IV SCH (09:00)
--- NOTE | 2016-08-10 09:51 | Gastrointestinal Progress Note ---
Assessment and Plan (1) Upper gastrointestinal hemorrhage Status: Acute Assessment and plan: 08/10-No reports of bleeding. Tolerating diet. Recheck H/H and if stable can discharge home from GI standpoint. Advance diet. Plan for repeat EGD in 6 weeks. Plan and addendum to follow by Dr Calero. 08/09-no overt bleeding. Status post EGD with variceal banding. Hemoglobin stable at 7.5. Continue to monitor and transfuse if hemoglobin less than 7. Plan an addendum to followed by Dr. Calero. 08/07-Sudden onset of coffee ground emesis with epigastric pain and melena. Hgb down from admission at 7.8. Hx of esophgaeal varices with banding in May of this year. Hemodynamically stable at present with no further bleeding. Continue to monitor serial HH. Plan for tentative EGD tomorrow to further evaluate. Plan and addendum to follow by Dr Calero. Current Visit: Yes Gastroenterology - PN: Subj Interval history: CC: GI bleed Pt is awake, alert, states he is feeling well today. Denies any pain, nausea or vomiting. Abdomen is soft, nontender. He states he continues to have normal brown bowel movements. He is tolerating his diet well. Will recheck his HH today and advance to soft diet. Abdomen is soft, nontender. If hemoglobin is not falling, okay from GI standpoint to discharge home with repeat EGD in 6 weeks. ROS: Denies SOB or chest pain Exam (Progress Note) - Constitutional Vitals: Period Temp Pulse Resp BP Sys/Moralez Pulse Ox Last 24 Hr 96.6 F-99.0 F 62-76 18-20 117-143/56-80 87-94 - Other Additional findings: General appearance: normal weight, no acute distress - Head Head exam: Present: normal inspection, normocephalic - Eye Eye exam: Present: other (Lids and conjunctive are unremarkable). Absent: scleral icterus - ENT ENT exam: Present: normal exam, normal oropharynx - Neck Neck exam: Present: normal inspection - Respiratory Respiratory exam: Present: clear to auscultation bilaterally. Absent: rales, rhonchi, wheezes - GI/Abdominal GI/Abdominal exam: Present: normal bowel sounds, soft. Absent: ascites, distended, mass, organomegaly, tenderness - Extremities Exam Extremities exam: Present: normal inspection, full ROM - Back Exam Back exam: Present: normal inspection - Neurological Exam Neurological exam: Present: alert, oriented X3 - Psychiatric Psychiatric exam: Present: normal affect, normal mood - Skin Skin exam: Present: normal color, warm, dry Results - Labs CBC & BMP: 08/09/16 06:06 08/08/16 05:49 Lab Results: I have reviewed the past 24 hour labs
[2016-08-10 10:19] LABS: Hematocrit 27.3 VOL% (42.0-52.0); Hemoglobin 8.9 GM/DL (14.0-18.0)
[2016-08-10 13:11] VITALS: BP 134/79
--- NOTE | 2016-08-10 13:11 | Discharge Summary ---
Hospital Course - Hospital Course Hospital Course: Mr. Thorne was admitted with complaints of hematemesis and melena. He was started on octreotide and IV PPI and admitted to the intensive care unit. He has history of hep C cirrhosis and is currently on Harvoni. He was seen in consultation by gastroenterology. Serial H&H's were monitored and the patient required 2 units of packed red blood cells. He had an upper endoscopy with banding of esophageal varices. His ammonia level was noted to be 119 and received lactulose during his hospital stay which he will continue as an outpatient. By discharge he had met maximum benefit of hospitalization. New medications on discharge include ferrous sulfate, spironolactone, and lactulose. Aspirin was discontinued at discharge and will likely have to be restarted at a later date. I spent 38 minutes coordinating his discharge. - Time spent with patient Time with patient DS: Greater than 30 minutes Diagnosis - Discharge Diagnosis (1) Hematemesis Status: Acute (2) Hepatic cirrhosis due to chronic hepatitis C infection Status: Acute (3) CAD (coronary artery disease) Status: Acute (4) Hypothyroidism Status: Acute (5) HTN (hypertension) Status: Acute Discharge Plan - Discharge Data Disposition: Disch To Home/Self Care Condition at Discharge: Stable Discharge Diet: advance to your usual diet Activity: resume usual activities as tolerated - Discharge Medications New Ferrous Sulfate Tab [Feosol Original Tab] 325 mg PO BID #60 tablet Lactulose Liquid [Chronulac] 20 gm PO Q8H #90 packet Pantoprazole Tab [Protonix Tab] 40 mg PO BID #60 tablet Spironolactone [Aldactone] 50 mg PO DAILY #30 tablet Continue Levothyroxine Tab [Synthroid Tab] 112 mcg PO DAILY@0700 risperiDONE TAB [RisperDAL TAB] 2 mg PO BID Pravastatin [Pravachol] 20 mg PO DAILY Metoprolol Tartrate Tab [Lopressor Tab] 25 mg PO BID Trazodone HCl 50 mg PO BEDTIME PRN PRN Reason: Insomnia Ledipasvir/Sofosbuvir [Harvoni 90-400 mg Tablet] 1 each PO DAILY Multivitamin (Centrum) [Centrum Tab] 1 tablet PO DAILY Furosemide 40 mg PO DAILY Folic Acid Tab 1 mg PO DAILY Famotidine Tab [Pepcid Tab] 20 mg PO BEDTIME Calcium Carbonate/Vitamin D3 [Calcium 600 + Vit D Tablet] 1 each PO DAILY Discontinued Aspirin [Ecotrin] 81 mg PO DAILY - Follow Up or Referral - Forms/Instructions Exam - Constitutional Vitals: Period Temp Pulse Resp BP Sys/Moralez Pulse Ox Last 24 Hr 96.6 F-99.0 F 62-74 18-20 117-143/56-80 87-93 General appearance: normal weight, no acute distress - Head Head exam: Present: normal inspection, normocephalic, atraumatic - Eye Eye exam: Present: EOMI, scleral icterus Pupils: Present: LENORE - ENT ENT exam: Present: normal exam - Neck Neck exam: Present: normal inspection - Respiratory Respiratory exam: Present: clear to auscultation bilaterally. Absent: accessory muscle use, prolonged expiratory phase, wheezes - Cardiovascular Cardiovascular exam: Present: regular rate and rhythm, systolic murmur. Absent : bradycardia, irregular rhythm - GI/Abdominal GI/Abdominal exam: Present: normal bowel sounds, ascites, distended, soft. Absent: hypoactive bowel sounds, tenderness, rebound - Extremities Exam Extremities exam: Present: normal inspection Discharge Results Labs on day of discharge: Labs from last 24 hours 08/10/16 10:06 Hgb 8.9 L Hct 27.3 L DS: Provider Date of admission: 08/06/16 19:26 Primary care physician: Waldemar Khan MD Attending physician on admission: Tessa Milton MD Discharging clinician: Tessa Milton MD Expected date of discharge: 08/10/16
== END 2016-08-10 16:00 | disposition home or self-care (01) | DRG 432 ==
LOC: EDBD → EDUNIT# → N.ED 17:17 → N.EDINP 19:26 → N.5E 19:44 → N.ICU 19:48 → N.4E 08-07 17:54
PROVIDERS: ADMIT Internal Medicine; ATTEND Internal Medicine
PROC: EGDWEBL (ICD-10-PCS; 2016-08-08 11:35)